=== PATIENT | female | born 1950 | race Caucasian/White ===

== ENCOUNTER → 2018-10-16 13:13 | Outpatient (CLI) | payer MEDICARE, OTHER, SELFPAY ==
--- NOTE | 2018-10-16 | DI.US.S_ITS ---
PROCEDURE: US CHEST COMPARISON: None. INDICATIONS: RIGHT CLAVICLE MASS FINDINGS: In the area of palpable abnormality, there is a 9 x 4 x 6 mm heterogeneous mass of undetermined etiology. Possible punctate calcifications. This appears asymmetric to the normal contralateral left side. IMPRESSION: Subcentimeter ill-defined heterogeneous mass in the region of palpable abnormality at the right medial clavicle of indeterminate etiology or clinical significance. Technically, lymphadenopathy or neoplasm cannot be excluded. Please correlate clinically and consider further assessment with contrast-enhanced chest CT Dictated by: Stone Fitzpatrick M.D. on 10/16/2018 at 17:08 Approved by: Stone Fitzpatrick M.D. on 10/16/2018 at 17:10
== END ==
PROVIDERS: PCP Family Medicine; Visit Provider Family Medicine
DX: R22.2 Localized swelling, mass and lump, trunk (principal)
CPT/HCPCS: 76604

== ENCOUNTER → 2018-10-21 13:42 | Outpatient (CLI) | payer MEDICARE, OTHER, SELFPAY ==
--- NOTE | 2018-10-21 | DI.CT.S_ITS ---
PROCEDURE: CT CHEST W CON INDICATIONS: RIGHT CLAVICLE MASS TECHNIQUE: After the administration of intravenous contrast, 5 mm thick sections acquired from the pulmonary apices to the posterior costophrenic angles. 7 mm thick coronal and sagittal MIP reformats were acquired. For radiation dose reduction, the following was used: automated exposure control, adjustment of mA and/or kV according to patient size. COMPARISON: [facility], , CHEST, 10/16/2018, 13:23. FINDINGS: Image quality: Excellent. Lungs and pleura: No acute air space opacities. Biapical subpleural densities are likely scars/atelectasis. No pleural effusions or pneumothorax. Central and peripheral airways are patent and normal in caliber. Mediastinum: Heart size is normal. No pericardial effusion. No mediastinal or hilar adenopathy by size criteria. Thoracic aorta and central pulmonary arteries are normal in size. Esophagus is normal in caliber. No hiatal hernia. Bones and chest wall: Deep to the palpable lump or mass felt by the patient, there is no mass seen on CT. Lateral to the marker, there is a 6 mm subcutaneous nodule. The right clavicle is normal in appearance without blastic or lytic lesion. No suspicious bony lesions. No vertebral body compression fractures. No axillary or supraclavicular adenopathy by size criteria. Thyroid gland is normal. Abdomen: There is a calcified granuloma in liver. A couple of low density nodules in liver are probably cysts or hemangiomas. A 1.1 cm round nodule adjacent to spleen is most likely a splenule. IMPRESSION: 1. No soft tissue mass is identified on CT deep to the area of interest marked by a skin marker. Lateral to the marker, there is a 6 mm subcutaneous nodule, indeterminate in clinical significance. Since this nodule is better seen on ultrasound, ultrasound followup is suggested if clinically indicated. 2. No supraclavicular or mediastinal lymphadenopathy. 3. No osseous lesions in the medial head of the right clavicle. 4. An old granuloma in liver and a couple of hepatic hypodensities most likely cysts or hemangiomas. Dictated by: Valerio Davis M.D. on 10/21/2018 at 16:17 Approved by: Valerio Davis M.D. on 10/22/2018 at 8:20
== END ==
PROVIDERS: PCP Family Medicine; Visit Provider Family Medicine
DX: M89.8X1 Other specified disorders of bone, shoulder (principal)
CPT/HCPCS: 71260; Q9967

== ENCOUNTER → 2018-11-24 11:32 | Outpatient (CLI) | payer MEDICARE, OTHER, SELFPAY ==
--- NOTE | 2018-11-24 | DI.RAD.S_ITS ---
PROCEDURE: XR WRIST LT MIN 3V INDICATIONS: LEFT WRIST PAIN AFTER FALL TECHNIQUE: 4 views of the wrist were acquired. COMPARISON: None. FINDINGS: Bones: No fractures or dislocations. No suspicious bony lesions. First CMC and triscaphe joint degeneration. First MCP joint degeneration. Soft tissues: No suspicious soft tissue calcifications. IMPRESSION: No fracture Dictated by: Stone Fitzpatrick M.D. on 11/24/2018 at 12:22 Approved by: Stone Fitzpatrick M.D. on 11/24/2018 at 12:24
== END ==
PROVIDERS: PCP Family Medicine; Visit Provider Family Medicine
DX: M25.532 Pain in left wrist (principal)
CPT/HCPCS: 73110

== ENCOUNTER → 2018-11-29 12:40 | Outpatient (CLI) | payer MEDICARE, OTHER, SELFPAY ==
--- NOTE | 2018-11-29 | DI.MG.S_ITS ---
BILATERAL DIGITAL SCREENING MAMMOGRAM 3D/2D WITH CAD: 11/29/2018 CLINICAL: Routine screening. Family history of breast cancer. Comparison is made to exams dated: 11/20/2017 mammogram, 04/27/2014 mammogram, and 07/28/2010 mammogram - [facility]. There are scattered fibroglandular elements in both breasts. Current study was also evaluated with a Computer Aided Detection (CAD) system. No significant masses, calcifications, or other findings are seen in either breast. There has been no significant interval change. IMPRESSION: NEGATIVE There is no mammographic evidence of malignancy. A 1 year screening mammogram is recommended. This exam was interpreted at Station ID: [id number]. NOTE: For mammograms, a report in lay terms will be sent to the patient. Approximately 15% of breast malignancies will not be visualized mammographically. In the management of a palpable breast mass, a negative mammogram must not discourage biopsy of a clinically suspicious lesion. Electronically Signed By: Fortino hogan/abhinav:12/01/2018 12:24:21 letter sent: Normal Exam ACR BI-RADS Category 1: Negative 3341F
== END ==
PROVIDERS: PCP Family Medicine; Visit Provider Family Medicine
DX: Z12.31 Encounter for screening mammogram for malignant neoplasm of breast (principal); Z80.3 Family history of malignant neoplasm of breast
CPT/HCPCS: 77063; 77067

== ENCOUNTER 2019-02-15 14:00 | Emergency (ER) | payer MEDICARE, OTHER, SELFPAY ==
[2019-02-15 14:02] VITALS: BP 114/72; PULSE 55; RESP 18; TEMP 36.5; O2SAT 99
--- NOTE | 2019-02-15 14:05 | DI.RAD.S_ITS ---
PROCEDURE: XR WRIST LT MIN 3V INDICATIONS: wrist pain/swelling after fall on to outstretched hand TECHNIQUE: 4 views of the wrist were acquired. COMPARISON: [facility], CR, XR WRIST LT MIN 3V, 11/24/2018, 11:58. FINDINGS: Bones: There is a transverse fracture identified involving the distal radial metaphysis with slight dorsal buckling/impaction. No additional fractures are appreciated. There are mild degenerative changes of the basal joint of the thumb. No suspicious osseous lesions are present. Soft tissues: No suspicious soft tissue calcifications. Soft tissue swelling of the wrist are noted. IMPRESSION: Mildly impacted fracture involving the distal left radial metaphysis. Dictated by: Greg Cook M.D. on 02/15/2019 at 13:17 Approved by: Greg Cook M.D. on 02/15/2019 at 13:19
--- NOTE | 2019-02-15 14:58 | ED_ITS ---
HPI - Extremity Injury (Upper) <Alejandra Griffin, ELDER COUNSELOR-BC - Last Filed: 02/15/19 16:01> General Chief Complaint: Extremity Injury, Upper Stated Complaint: States broken left wrist Time Seen by Provider: 02/15/19 14:19 Source: patient and family Mode of arrival: ambulatory Limitations: no limitations History of Present Illness HPI narrative: The patient is a 68year-old female with history of recent sinus surgery who presents with a chief complaint of an isolated left wrist injury. She states she was walking her dogs when one of them pulled her and she tripped, having a FOOSH injury to her left wrist. She denies hitting her head, hitting her neck hitting anything else. She denies loss of consciousness or any other pain other than her left wrist. She states she has a history of an injury to that wrist, and had an x-ray done last spring but does not know the results. She does complain of abrasions on her bilateral forearms. She states her tetanus is up-to-date within the past 5 years. She states she is right-hand dominant. Related Data Home Medications Medication Instructions Recorded Confirmed alpha lipoic acid PO DAILY 11/17/18 11/17/18 cholecalciferol (vitamin D3) 4,000 4,000 unit PO DAILY 11/17/18 11/17/18 unit capsule coenzyme Q10 75 mg capsule 75 mg PO DAILY 11/17/18 11/17/18 folic acid PO DAILY 11/17/18 11/17/18 lactobacillus combination no.8 PO 11/17/18 11/17/18 magnesium citrate 125 mg capsule 125 mg PO DAILY cap 11/17/18 11/17/18 vitamin B complex tablet 1 tab PO DAILY 11/17/18 11/17/18 Previous Rx's Medication Instructions Recorded hydrocodone-acetaminophen [[place]] 1 - 2 tab PO Q6HP PRN #12 tab 04/11/17 Allergies Allergy/AdvReac Type Severity Reaction Status Date / Time ketorolac [KETOROLAC] Allergy Severe injection Unverified 01/08/18 11:54 caused 7lb weight gain within minutes. cephalexin [CEPHALEXIN] Allergy Unknown Unverified 01/08/18 11:54 meperidine [MEPERIDINE] Allergy Unknown Unverified 01/08/18 11:54 Penicillins [PENICILLINS] Allergy Unknown Unverified 01/08/18 11:54 propoxyphene [PROPOXYPHENE] Allergy Unknown Unverified 01/08/18 11:54 prochlorperazine AdvReac Unknown Unverified 01/08/18 11:54 [PROCHLORPERAZINE] NSAIDS (Non-Steroidal AdvReac Verified 11/17/18 14:08 Anti-Inflamma Review of Systems <JANET Patiño - Last Filed: 02/15/19 16:01> Review of Systems GENERAL: Denies chills, fatigue, malaise, fever, sweats. HEENT: Denies sinus pain, ear pain, sore throat, difficulty swallowing, dizziness. RESPIRATORY: Denies dyspnea, cough, wheezing, hemoptysis, sputum. CARDIOVASCULAR: Denies chest pain, palpitations, orthopnea, edema, GASTROINTESTINAL: Denies nausea, vomiting, abdominal pain, diarrhea, constipatio n, melena. : Denies dysuria, frequency, incontinence, hematuria, urinary retention. MUSCULOSKELETAL: See HPI SKIN: See HPI NEUROLOGIC: Denies weakness, headache, numbness, change in speech, confusion, seizures, incoordination. PSYCHIATRIC: No concerning psychosocial issues. 12 point review of systems is negative except for those stated above PFSH <JANET Patiño - Last Filed: 02/15/19 16:01> Social History (Updated 11/17/18 @ 14:00 by Donna Chapman LPN) household members: none Smoking Status: Never smoker alcohol intake: never substance use type: does not use Social History (Updated 11/17/18 @ 14:00 by Donna Chapman LPN) household members: none Smoking Status: Never smoker alcohol intake: never substance use type: does not use Exam <JANET Patiño - Last Filed: 02/15/19 16:01> Narrative Exam Narrative: GENERAL: This is a well-nourished, well-developed patient, in no acute distress lungs sitting in wheelchair HEAD: Atraumatic. Normocephalic. No temporal or scalp tenderness. EYES: Pupils equal round and reactive. Extraocular motions intact. No scleral icterus. No injection or drainage. NECK: Trachea midline. No JVD or lymphadenopathy. Supple, nontender, no meningeal signs. CARDIOVASCULAR: Regular rate and rhythm RESPIRATORY: No cough. No increased respiratory effort. GASTROINTESTINAL: Abdomen soft, non-tender, nondistended. No hepato- splenomegaly, or palpable masses. No guarding. EXTREMITIES: pain to palpation left elbow. Positive radial pulse left hand. Capillary refill less than 2 seconds all fingers left hand. Able to flex all fingers left hand. BACK: No pain to C-spine or spinal palpation NEURO: AOx3. SKIN: 0.25 cm abrasion noted palmar aspect of right hand. Abrasion noted left elbow. Initial Vital Signs Initial Vital Signs: Vital Signs Temperature 97.7 F 02/15/19 14:02 Pulse Rate 55 L 02/15/19 14:02 Respiratory Rate 18 02/15/19 14:02 Blood Pressure 114/72 02/15/19 14:02 Pulse Oximetry 99 02/15/19 14:02 <Margo Anderson DO - Last Filed: 02/19/19 11:32> Initial Vital Signs Initial Vital Signs: Vital Signs Temperature 97.7 F 02/15/19 14:02 Pulse Rate 55 L 02/15/19 14:02 Respiratory Rate 18 02/15/19 14:02 Blood Pressure 114/72 02/15/19 14:02 Pulse Oximetry 99 02/15/19 14:02 Procedures <JANET Patiño - Last Filed: 02/15/19 16:01> Orthopedic Splinting/Casting Injury #1: Side: left Upper Extremity Injury Location: wrist Upper Extremity Immobilizer: sling/shoulder immobilizer and sugar tong splint Post splinting neuro exam: intact Post splinting vascular exam: intact Placed by: Nursing Course <JANET Patiño - Last Filed: 02/15/19 16:01> Orders Ordered: ED Orders 02/15/19 14:05 XR wrist LT min 3V Stat Vital Signs - 8 hr 02/15/19 14:02 02/15/19 15:30 Temperature 97.7 F Pulse Rate 55 L 63 Respiratory Rate 18 19 Blood Pressure 114/72 154/72 H Pulse Oximetry 99 100 <Margo Anderson DO - Last Filed: 02/19/19 11:32> Orders Ordered: ED Orders 02/15/19 14:05 XR wrist LT min 3V Stat Vital Signs - 8 hr 02/15/19 14:02 02/15/19 15:30 Temperature 97.7 F Pulse Rate 55 L 63 Respiratory Rate 18 19 Blood Pressure 114/72 154/72 H Pulse Oximetry 99 100 MDM - Extremity Injury (Upper) <JANET Patiño - Last Filed: 02/15/19 16:01> Imaging Data Wrist x-ray: Radiologist's impression: [address] [address] XRay Report Signed Patient: Ashkan Armando#: [id number] : [id number]:[id number] Age/Sex: 68 / FDate of Service: 02/15/19 Loc: ED Accession Number: [id number] Procedure: XR wrist LT min 3V Ordering Provider: Alejandra Griffin PROCEDURE: XR WRIST LT MIN 3V INDICATIONS: wrist pain/swelling after fall on to outstretched hand TECHNIQUE: 4 views of the wrist were acquired. COMPARISON: [facility], CR, XR WRIST LT MIN 3V, 11/24/2018, 11:58. FINDINGS: Bones: There is a transverse fracture identified involving the distal radial metaphysis with slight dorsal buckling/impaction. No additional fractures are appreciated. There are mild degenerative changes of the basal joint of the thumb. No suspicious osseous lesions are present. Soft tissues: No suspicious soft tissue calcifications. Soft tissue swelling of the wrist are noted. IMPRESSION: Mildly impacted fracture involving the distal left radial metaphysis. Dictated by: Greg Cook M.D. on 02/15/2019 at 13:17 Approved by: Greg Cook M.D. on 02/15/2019 at 13:19 [facility] Narrative Medical decision making narrative: The patient is a 68-year-old female presents with an isolated left wrist injury. She has a distal radius fracture on x-ray. She was placed in a sugar-tong splint which she tolerated well. I discussed at length rest ice compression elevation as well as [id number] pain medications as needed and able. The patient declined pain medication throughout her stay in the emergency department, and states that she has plenty of [place] at home if she needs it. Discussed at length return precautions to the emergency department including decreased circulation of fingers. Discussed follow-up with primary care provider as well as Orthopedics. No questions or concerns upon discharge. Discharge Plan Departure Patient Disposition: Home Clinical Impression: Abdominal pain Fracture of wrist Qualifiers: Encounter type: initial encounter Fracture type: closed Laterality: left Qualified Code(s): S62.102A - Fracture of unspecified carpal bone, left wrist, initial encounter for closed fracture Discharge Date/Time: 02/15/19 15:32 Interventions: ED Discharge Assessment Last Done: 02/15/19 15:30 Instructions: How to Use a Sling, How To Perform RICE (Rest, Ice, Compress, Elevate), How to Take Care of Your Splint, DI for Distal Radius Fracture Activity Restrictions/Additional Instructions: Thank you for trusting us with your care today. Please follow up with your primary care physician as well as [facility]. I have included their contact information. Please continue [id number] medications as needed and able for pain. P lease also use rest ice compression elevation. Please come back to the emergency department for any acute concerns such as decreased circulation to your fingers. Come back to the emergency department for any acute concerns, but please follow up with primary care provider as well. Prescriptions: No Action hydrocodone-acetaminophen [[place]] 5 MG/325 MG tablet 1 - 2 tab PO Q6HP PRNQty: 12 RF: 0 cholecalciferol (vitamin D3) 4,000 unit capsule 4,000 unit PO DAILY RF: 0 vitamin B complex [B Complex-Vitamin B12] tablet 1 tab PO DAILY RF: 0 folic acid PO DAILY RF: 0 magnesium citrate 125 mg capsule 125 mg PO DAILY RF: 0 alpha lipoic acid PO DAILY RF: 0 Ultra CoQ10 75 mg capsule 75 mg PO DAILY RF: 0 lactobacillus combination no.8 PO RF: 0 Referrals: [facility] [Provider Group] Corby Sanchez MD [Primary Care Provider] - <Margo Anderson DO - Last Filed: 02/19/19 11:32> Cosign ED Attending Janes Attestation: I was immediately available in the department for consultation. Documentation has been reviewed. I agree with assessment and plan.
[2019-02-15 15:30] VITALS: BP 154/72; PULSE 63; RESP 19; O2SAT 100
== END 2019-02-15 15:32 | disposition home or self-care (01) ==
PROVIDERS: Emergency Provider Nurse Practitioner Family; PCP Family Medicine
DX: S62.102A Fracture of unspecified carpal bone, left wrist, initial encounter for closed fracture (principal); W19.XXXA Unspecified fall, initial encounter
CPT/HCPCS: 29125; 73110; 99282; 99283

== ENCOUNTER → 2019-05-12 13:33 | Outpatient (CLI) | payer MEDICARE, OTHER, SELFPAY ==
--- NOTE | 2019-05-12 | DI.US.S_ITS ---
PROCEDURE: US CHEST COMPARISON: [facility], CT, CT CHEST W CON, 10/21/2018, 13:52. [facility], US, US CHEST, 10/16/2018, 13:23. INDICATIONS: CLAVICAL MASS FINDINGS: No significant change in heterogeneous mass involving the right clavicular head measuring 0.7 x 0.5 x 0.5 cm. Minimal internal vasculature noted. IMPRESSION: No significant change in heterogeneous, mildly vascular mass involving the right clavicular head. If indicated, sonographically directed fine needle aspiration could be performed for pathologic diagnosis. Dictated by: Vincent REGALADO Interpreted: Roxanne Gregory MD on 05/12/2019 at 14:53 Approved by: Roxanne Gregory M.D. on 05/12/2019 at 16:39
== END ==
PROVIDERS: PCP Family Medicine; Visit Provider Family Medicine
DX: R22.2 Localized swelling, mass and lump, trunk (principal); M85.851 Other specified disorders of bone density and structure, right thigh; M85.852 Other specified disorders of bone density and structure, left thigh; M85.88 Other specified disorders of bone density and structure, other site; Z78.0 Asymptomatic menopausal state
CPT/HCPCS: 76604; 77080

== ENCOUNTER → 2019-12-08 15:38 | Outpatient (CLI) | payer MEDICARE, OTHER, SELFPAY ==
--- NOTE | 2019-12-08 | DI.MG.S_ITS ---
BILATERAL DIGITAL SCREENING MAMMOGRAM 3D/2D WITH CAD: 12/08/2019 CLINICAL: Routine screening. Family history of breast cancer. Comparison is made to exams dated: 11/29/2018 mammogram, 11/20/2017 mammogram, and 04/27/2014 mammogram - [facility]. There are scattered fibroglandular elements in both breasts. Current study was also evaluated with a Computer Aided Detection (CAD) system. No significant masses, calcifications, or other findings are seen in either breast. There has been no significant interval change. IMPRESSION: NEGATIVE There is no mammographic evidence of malignancy. A 1 year screening mammogram is recommended. This exam was interpreted at Station ID: [id number]. NOTE: For mammograms, a report in lay terms will be sent to the patient. Approximately 15% of breast malignancies will not be visualized mammographically. In the management of a palpable breast mass, a negative mammogram must not discourage biopsy of a clinically suspicious lesion. Electronically Signed By: Lexy maurer/abhinav:12/08/2019 17:00:31 letter sent: Normal Exam ACR BI-RADS Category 1: Negative 3341F
== END ==
PROVIDERS: PCP Family Medicine; Referring Provider Family Medicine; Visit Provider Family Medicine
DX: Z12.31 Encounter for screening mammogram for malignant neoplasm of breast (principal); Z80.3 Family history of malignant neoplasm of breast
CPT/HCPCS: 77063; 77067

== ENCOUNTER → 2021-01-16 10:09 | Outpatient (CLI) | payer MEDICARE, OTHER, SELFPAY ==
--- NOTE | 2021-01-16 10:11 | DI.MG.S_ITS ---
BILATERAL DIGITAL SCREENING MAMMOGRAM 3D/2D WITH CAD: 01/16/2021 CLINICAL: Routine screening. Family history of breast cancer. Comparison is made to exams dated: 12/08/2019 mammogram, 11/29/2018 mammogram, and 11/20/2017 mammogram - [facility]. There are scattered fibroglandular elements in both breasts. Current study was also evaluated with a Computer Aided Detection (CAD) system. No significant masses, calcifications, or other findings are seen in either breast. There has been no significant interval change. IMPRESSION: NEGATIVE There is no mammographic evidence of malignancy. A 1 year screening mammogram is recommended. This exam was interpreted at Station ID: [id number]. NOTE: For mammograms, a report in lay terms will be sent to the patient. Approximately 15% of breast malignancies will not be visualized mammographically. In the management of a palpable breast mass, a negative mammogram must not discourage biopsy of a clinically suspicious lesion. Electronically Signed By: Osvaldo figueroa/abhinav:01/16/2021 10:48:34 letter sent: Normal Exam ACR BI-RADS Category 1: Negative 3341F
== END ==
PROVIDERS: PCP Family Medicine; Referring Provider Family Medicine; Visit Provider Family Medicine
DX: Z12.31 Encounter for screening mammogram for malignant neoplasm of breast (principal); Z80.3 Family history of malignant neoplasm of breast
CPT/HCPCS: 77063; 77067

== ENCOUNTER → 2021-05-08 13:14 | Outpatient (CLI) | payer MEDICARE, OTHER, SELFPAY ==
[2021-05-08 16:59] LABS: COVID19 -Nasal RAPID Negative (Negative)
== END ==
PROVIDERS: PCP Family Medicine; Visit Provider Nurse Practitioner
DX: Z01.812 Encounter for preprocedural laboratory examination (principal); Z20.822 Contact with and (suspected) exposure to COVID-19
CPT/HCPCS: 87635; C9803

== ENCOUNTER 2021-05-09 07:00 | Day surgery (SDC) | payer MEDICARE, OTHER, SELFPAY ==
--- NOTE | 2021-05-09 | PATH_ITS ---
[facility] Accession Number: [id number] . 01 Material submitted: . cecum - CECAL POLYP X2 . 02 Diagnosis: Cecum, Polyp x2, Biopsy: Tubular adenomas. MRV 05/11/2021 1003 Local . 02 Electronically signed: . Janina Ewing MD, Pathologist NPI- [id number] . 01 Gross description: . CECAL POLYP X2: Received in formalin are 2 fragment(s) of de león, soft tissue measuring 0.7 x 0.2 x 0.1 cm to 0.3 x 0.2 x 0.1 cm submitted entirely in 1 cassette(s) /JAIMIE 05/10/2021 0440 Local . 02 Pathologist provided ICD-10: D12.0 . 02 CPT . 359252 Performed at: 01 [facility] Cytology [address] [facility] [address], [place] [id number] MD Fortino Hernandez MD Phone: [phone] Performed at: 02 [facility] [address] [place], [place] [id number] MD Janina Eiwng MD Phone: [phone]
[2021-05-09] MEDS: SODIUM CHLORIDE 0.9% 1,000 ML 84 ML IV (07:16)
[2021-05-09 07:23] VITALS: BP 151/86; PULSE 86; RESP 16; TEMP 36.4; O2SAT 97; BMI 23.1
--- NOTE | 2021-05-09 07:56 | PM.HP.1 ---
History of Present Illness History of Present Illness Date Patient Seen: 05/09/21 Time Patient Seen: 07:56 Chief complaint: COLONOSCOPY Narrative: personal hx of colon polyp and fam hx colon cancer Patient History Family & Social History Social History: household members none Tobacco & Substance use: Smoking Status Never smoker alcohol intake never Substance Use Type does not use Meds Home Medications and Allergies Home Medications Medication Instructions Recorded Confirmed Type cholecalciferol (vitamin D3) 100 4,000 unit PO DAILY 11/17/18 05/09/21 History mcg (4,000 unit) capsule coenzyme Q10 75 mg capsule (Ultra 75 mg PO DAILY 11/17/18 05/09/21 History CoQ10) lactobacillus combination no.8 See Rx Instructions .ROUTE .COMPLEX 11/17/18 05/09/21 History [Adult Probiotic] magnesium citrate 125 mg capsule 125 mg PO DAILY cap 11/17/18 05/09/21 History oxyquinoline 0.025 %-sodium lauryl 1 each VAG .COMPLEX #113.4 gram 02/29/20 05/09/21 Rx sulfate 0.01 % vaginal gel levothyroxine 50 mcg tablet 50 mcg PO DAILY 05/09/21 05/09/21 History liothyronine 5 mcg tablet 5 mcg PO DAILY 05/09/21 05/09/21 History Allergies Allergy/AdvReac Type Severity Reaction Status Date / Time ketorolac [KETOROLAC] Allergy Severe injection Verified 05/09/21 07:31 caused 7lb weight gain within minutes. cephalexin [CEPHALEXIN] Allergy Unknown Verified 05/09/21 07:31 meperidine [MEPERIDINE] Allergy Unknown Verified 05/09/21 07:31 Penicillins [PENICILLINS] Allergy Unknown Verified 05/09/21 07:31 propoxyphene [PROPOXYPHENE] Allergy Unknown Verified 05/09/21 07:31 prochlorperazine AdvReac Unknown Verified 05/09/21 07:31 [PROCHLORPERAZINE] NSAIDS (Non-Steroidal AdvReac Verified 05/09/21 07:31 Anti-Inflamma Review of Systems Review of Systems ROS: Yes All systems reviewed with the patient and are negative except as otherwise documented Gastrointestinal Gastrointestinal: Reports constipation Exam Vital Signs (past 8 hours): - 05/09/21 07:23 Temperature 97.5 F L Pulse Rate 86 Respiratory Rate 16 Blood Pressure 151/86 H Pulse Oximetry 97 Oxygen Delivery Method Room Air Const General: cooperative and comfortable Orientation: alert HENMT Head: normocephalic Ears: external ears normal Nose: external nose normal Face and sinus: normal facial exam Mouth: oral mucosae normal Eyes General: appearance normal, both eyes and all related structures Neck Neck: normal visual inspection Chest Chest: normal inspection of the chest Resp Effort & Inspection: normal respiratory effort Auscultation: clear to auscultation bilaterally Cardio Rate: regular rate Rhythm: regular rhythm Heart Sounds: no murmurs GI Inspection: normal to inspection Palpation: soft and No tender Auscultation: normal bowel sounds Skin General: no rashes or lesions noted and No jaundice Neuro General: patient alert and moves all extremities Cognition: normal cognition Speech: speech normal Extrem General: no pedal edema Psych Appearance: grossly normal Assessment & Plan Assessment & Plan narrative: Personal history of colon polyps and a family history of colon cancer. Colonoscopy is planned for today.
--- NOTE | 2021-05-09 07:58 | PM.PREOP ---
Pre-operative Note COVID-19 COVID-19 status: Negative Result date/Date tested (Pos, Neg/Pending): 05/08/21 Interval Note History & Physical reviewed/Exam performed by Physician: Yes Changes to H&P: No ASA Class (for procedural sedation): II
[2021-05-09] MEDS: MIDAZOLAM 5 MG/5 ML VIAL IV (08:12)
[2021-05-09] MEDS: fentaNYL 250 MCG/5 ML INJ IV (08:12)
--- NOTE | 2021-05-09 08:38 | PM.OP.ENDO ---
Operative Date/Time/Diagnoses Date of procedure: 05/09/21 Time of procedure: 08:38 Pre-op diagnosis: Colon polyps and a family history of colon cancer Post-op diagnosis: same Procedure & Clinicians Study performed: Colonoscopy with cold forceps polypectomy and cold snare polypectomy Same procedure as scheduled: Yes Indications: Personal history of colon polyps and a family history of colon cancer Surgeon: Clyde Khanna Procedure Notes SCOAP/Timeout: Done Procedure in detail: After the risks and benefits were explained, written and verbal informed consent was obtained. The patient was brought into the procedure room and placed into the left lateral decubitus position. Conscious sedation medication was applied as per nursing documentation. Digital rectal examination was accomplished. The scope was introduced into the patient and advanced under direct visualization to the cecum as identified by the appendiceal orifice and ileocecal valve. The scope was slowly withdrawn to carefully examine the mucosa for any defects or lesions. Comprehensive imaging was accomplished throughout the rectum including the dentate line. The colon was decompressed, the scope was then removed from the patient who tolerated the procedure well. 4 mg Versed 100 mcg fentanyl Bowel prep adequate Pediatric colonoscope Scope withdrawal time: 12 minutes Sedation minutes: 34 Complications: none Impression: There was some very scant diverticulosis in the left colon. The patient had a tortuous navigation. It was challenging to achieve cecal intubation. There were 2 polyps in the cecum 1 was quite diminutive and cold forceps were used. The other was perhaps 5 mm and cold snare was employed. Endoscopic diagnosis 1. Diverticulosis 2. Colon polyps Post-procedure Recommendations: Colonscopy in 5 years Plan for aftercare: 1. Await histopathology 2. Repeat colonoscopy 5 years Disposition: PACU
[2021-05-09 08:40] VITALS: BP 127/75; PULSE 68; RESP 16; TEMP 36.3; O2SAT 98
[2021-05-09 08:45] VITALS: BP 117/64; PULSE 65; RESP 16; O2SAT 99
[2021-05-09 08:50] VITALS: BP 118/64; PULSE 72; RESP 14; O2SAT 98
[2021-05-09 09:01] VITALS: BP 122/60; PULSE 61; RESP 16; TEMP 36.4; O2SAT 98
[2021-05-09 09:09] VITALS: BP 121/70; PULSE 79; RESP 16; O2SAT 98
== END 2021-05-09 09:12 | disposition home or self-care (01) ==
PROVIDERS: PCP Family Medicine; Referring Provider Internal Medicine Gastroenterology; Visit Provider Internal Medicine Gastroenterology
PROC: 0DJD8ZZ Inspection of Lower Intestinal Tract, Via Natural or Artificial Opening Endoscopic (ICD-10-PCS; CPT 45378; principal; 2021-05-09 08:00)
DX: Z12.11 Encounter for screening for malignant neoplasm of colon (principal); Z80.0 Family history of malignant neoplasm of digestive organs; Z86.010 Personal history of colon polyps; K57.30 Diverticulosis of large intestine without perforation or abscess without bleeding; D12.0 Benign neoplasm of cecum
CPT/HCPCS: 45385; 45380; J2250; J3010

== ENCOUNTER → 2022-01-17 15:13 | Outpatient (CLI) | payer MEDICARE, OTHER, SELFPAY ==
--- NOTE | 2022-01-17 15:15 | DI.MG.S_ITS ---
BILATERAL DIGITAL SCREENING MAMMOGRAM 3D/2D WITH CAD: 01/17/2022 CLINICAL: Routine screening. Family history of breast cancer. Comparison is made to exams dated: 01/16/2021 mammogram, 12/08/2019 mammogram, and 11/29/2018 mammogram - [facility]. There are scattered fibroglandular elements in both breasts. Current study was also evaluated with a Computer Aided Detection (CAD) system. No significant masses, calcifications, or other findings are seen in either breast. There has been no significant interval change. IMPRESSION: NEGATIVE There is no mammographic evidence of malignancy. A 1 year screening mammogram is recommended. This exam was interpreted at Station ID: [id number]. NOTE: For mammograms, a report in lay terms will be sent to the patient. Approximately 15% of breast malignancies will not be visualized mammographically. In the management of a palpable breast mass, a negative mammogram must not discourage biopsy of a clinically suspicious lesion. Electronically Signed By: Gama Lerma M.D., jr/abhinav:01/18/2022 08:39:49 letter sent: Normal Exam ACR BI-RADS Category 1: Negative 3341F
== END ==
PROVIDERS: PCP Family Medicine; Referring Provider Family Medicine; Visit Provider Family Medicine
DX: Z12.31 Encounter for screening mammogram for malignant neoplasm of breast (principal); Z80.3 Family history of malignant neoplasm of breast
CPT/HCPCS: 77063; 77067

== ENCOUNTER → 2023-01-25 10:51 | Outpatient (CLI) | payer MEDICARE, OTHER, SELFPAY ==
--- NOTE | 2023-01-25 | DI.MG.S_ITS ---
BILATERAL DIGITAL SCREENING MAMMOGRAM 3D/2D WITH CAD: 01/25/2023 CLINICAL: Routine screening. Family history of breast cancer. Comparison is made to exams dated: 01/17/2022 mammogram, 01/16/2021 mammogram, and 12/08/2019 mammogram - [facility]. There are scattered areas of fibroglandular density in both breasts (category b / 25%-50% glandular tissue). Current study was also evaluated with a Computer Aided Detection (CAD) system. There are benign vascular calcifications in both breasts. No significant masses, calcifications, or other findings are seen in either breast. There has been no significant interval change. IMPRESSION: BENIGN There is no mammographic evidence of malignancy. A 1 year screening mammogram is recommended. Based on the Tyrer Cuzick model (a risk assessment model) the patient's lifetime risk is 8.9% and her 10 year risk is 6.7%. According to the ACR, ACS, and NCCN guidelines, an annual breast MRI exam along with mammogram is recommended if the patient's lifetime risk is 20% or greater. This exam was interpreted at Station ID: [id number]. NOTE: For mammograms, a report in lay terms will be sent to the patient. Approximately 15% of breast malignancies will not be visualized mammographically. In the management of a palpable breast mass, a negative mammogram must not discourage biopsy of a clinically suspicious lesion. Electronically Signed By: Sofi navas/abhinav:01/25/2023 12:10:52 letter sent: Normal Exam ACR BI-RADS Category 2: Benign Finding(s) 3342F
== END ==
PROVIDERS: PCP Family Medicine; Referring Provider Family Medicine; Visit Provider Family Medicine
DX: Z12.31 Encounter for screening mammogram for malignant neoplasm of breast (principal); Z80.3 Family history of malignant neoplasm of breast
CPT/HCPCS: 77063; 77067

== ENCOUNTER 2023-02-16 15:54 | Emergency (ER) | payer MEDICARE, OTHER, SELFPAY ==
[2023-02-16] VITALS (9 sets, daily range): BP systolic 134–192; BP diastolic 65–91; PULSE 74–84; RESP 12–24; TEMP 36.4; O2SAT 98–100; BMI 22.3
--- NOTE | 2023-02-16 16:06 | DI.RAD.S_ITS ---
PROCEDURE: XR CHEST 1V INDICATIONS: chest pain TECHNIQUE: One view of the chest was acquired. COMPARISON: [facility], , CHEST 1 VIEW, 09/04/2013, 2:25. FINDINGS: Surgical changes and devices: None. Lungs and pleura: Lungs are clear. No pleural effusions or pneumothorax. Mediastinum: Mediastinal contours appear normal. Heart size is normal. Bones and chest wall: No suspicious bony lesions. Overlying soft tissues appear unremarkable. IMPRESSION: No acute process. Dictated by: Suellen Akbar M.D. on 02/16/2023 at 15:33 Approved by: Suellen Akbar M.D. on 02/16/2023 at 15:33
[2023-02-16 16:18] LABS: Add Manual Diff / Slide Review NO; Basophils Absolute Auto 100 /uL (0-100); Basophils Percent Auto 0.8 % (0-2); Eosinophils Absolute Auto 100 /uL (0-450); Hematocrit 41.7 % (36-46); Hemoglobin 14.1 g/dL (12.0-16.0); Lymphocytes Absolute Auto 1400 /uL (1100-4500); Lymphocytes Percent Auto 18.9 % (25-40); Mean Corpuscular HGB Conc 33.9 % (30-36); Mean Corpuscular Hemoglobin 29.9 PG (26-34); Mean Corpuscular Volume 88.3 fL (80-100); Monocytes Absolute Auto 600 /uL (0-900); Monocytes Percent Auto 7.6 % (3-14); Neutrophils Absolute Auto 5100 /uL (1500-7000); Neutrophils Percent Auto 70.7 % (50-75); Platelet Count 301 X10^3/uL (150-400); Red Blood Cell Count 4.72 X10^6/uL (4.0-5.2); Red Cell Distribution Width 13.4 % (11.6-14.8); White Blood Cell Count 7.3 X10^3/uL (4.5-11.0)
[2023-02-16 16:24] LABS: Prothrombin Time 11.1 SECONDS (10.1-12.7)
[2023-02-16 16:29] LABS: Alanine Aminotransferase 24 IU/L (<35); Albumin 4.2 g/dL (3.5-5.0); Albumin Globulin Ratio 1.4 (1.0-2.8); Alkaline Phosphatase 112 U/L (38-126); Aspartate Aminotransferase 23 IU/L (14-36); BUN Creatinine Ratio 36.7 (6-22); Bilirubin Total 0.4 mg/dL (0.2-1.3); Blood Urea Nitrogen 18 mg/dL (7-17); Carbon Dioxide 28 mmol/L (22-32); Chloride 101 mmol/L (98-107); Creatine Kinase 124 U/L (30-135); Estimated Glomerular Filt Rate > 60 mL/min (>60); Glucose 105 mg/dL (80-110); HEMOLYSIS < 15 (0-50); Lipase 66 U/L (23-300); Magnesium 2.4 mg/dL (1.6-2.3); Potassium 3.8 mmol/L (3.4-5.1); Sodium 134 mmol/L (137-145); Total Protein 7.2 g/dL (6.3-8.2)
[2023-02-16 16:34] LABS: PTT Partial Thromboplastin Tim 31 SECONDS (26-36)
[2023-02-16 16:40] LABS: Troponin I < 0.012 ng/mL (0.01-0.034)
[2023-02-16 16:44] LABS: CKMB % Relative Index 4.5 % (1.5-5.0); Creatine Kinase MB 5.62 ng/mL (<2.37)
--- NOTE | 2023-02-16 17:28 | ED.ARRPALP ---
HPI - Arrhythmia/Palpitations General Chief Complaint: Arrhythmia/Palpitations Stated Complaint: heart beat messed up Time Seen by Provider: 02/16/23 16:13 Source: patient Mode of arrival: Family Vehicle History of Present Illness HPI narrative: 72-year-old female nonsmoker with history of thyroid problems and prior history of SVT presents with family in the chief complaint of palpitations, rapid heart rate and generally feeling unwell over the course of the day, starting at about 10:00 a.m.. She is not currently taking any medications. She denies any dietary change or other lifestyle change. She is been exercising and went for a hike this morning and felt completely fine and absent of symptoms. It was noted that she had an elevated blood pressure earlier today which could certainly have been contributing however she is asymptomatic at time of evaluation. She has no chest pain or shortness of breath. She denies nausea, vomiting or diarrhea. She is had no fever or chills. Related Data Home Medications Medication Instructions Recorded Confirmed cholecalciferol (vitamin D3) 100 4,000 unit PO DAILY 11/17/18 09/13/21 mcg (4,000 unit) capsule coenzyme Q10 75 mg capsule (Ultra 75 mg PO DAILY 11/17/18 09/13/21 CoQ10) lactobacillus combination no.8 See Rx Instructions .Route .COMPLEX 11/17/18 09/13/21 [Adult Probiotic] magnesium citrate 125 mg capsule 125 mg PO DAILY 11/17/18 09/13/21 levothyroxine 50 mcg tablet 50 mcg PO DAILY 05/09/21 09/13/21 liothyronine 5 mcg tablet 5 mcg PO DAILY 05/09/21 09/13/21 Previous Rx's Medication Instructions Recorded oxyquinoline 0.025 %-sodium lauryl 1 ea vaginal .COMPLEX #113.4 grams 09/13/21 sulfate 0.01 % vaginal gel Allergies Allergy/AdvReac Type Severity Reaction Status Date / Time ketorolac [KETOROLAC] Allergy Severe injection Verified 02/16/23 16:11 caused 7lb weight gain within minutes. Latex, Natural Rubber Allergy Severe Hives Verified 02/16/23 16:11 cephalexin [CEPHALEXIN] Allergy Unknown Verified 02/16/23 16:11 meperidine [MEPERIDINE] Allergy Unknown Verified 02/16/23 16:11 Penicillins [PENICILLINS] Allergy Unknown Verified 02/16/23 16:11 propoxyphene [PROPOXYPHENE] Allergy Unknown Verified 02/16/23 16:11 prochlorperazine AdvReac Unknown Verified 02/16/23 16:11 [PROCHLORPERAZINE] NSAIDS (Non-Steroidal AdvReac Verified 02/16/23 16:11 Anti-Inflamma Review of Systems Review of Systems Narrative: GENERAL: Denies chills, fatigue, malaise, fever, sweats. HEENT: Denies sinus pain, ear pain, sore throat, difficulty swallowing, dizziness. RESPIRATORY: Denies dyspnea, cough, wheezing, hemoptysis, sputum. CARDIOVASCULAR: See HPI GASTROINTESTINAL: Denies nausea, vomiting, abdominal pain, diarrhea, constipation, melena. : Denies dysuria, frequency, incontinence, hematuria, urinary retention. MUSCULOSKELETAL: denies weakness, joint pain, or bony pain SKIN: Denies rash, skin lesions, or other NEUROLOGIC: Denies weakness, headache, numbness, change in speech, confusion, seizures, incoordination. PSYCHIATRIC: No concerning psychosocial issues. Patient History Medical History Acne Alopecia Ankle pain Cataracts, bilateral Chicken pox Foot pain Fractures Heavy menstrual period Hyperthyroidism Measles Mumps Myasthenia gravis Osteoarthritis Osteopenia Painful menstrual periods Plantar warts Surgical History Anesthesia History of breast surgery History of hernia repair History of knee replacement History of surgery History of tonsillectomy Family History Father Colon cancer Skin cancer Hyperlipidemia Hypertension Kidney disease Mother Hyperlipidemia Brother History of heart disease Hyperlipidemia History of heart attack Sister Hyperlipidemia Social History household members: none Smoking Status: Never smoker alcohol intake: never substance use type: does not use Smoking Status: Never smoker alcohol intake frequency: 0-2 drinks per day Substance Use Type: does not use Exam Narrative Exam Narrative: GENERAL: [] year old patient appears stated age. Well-developed patient, in mild distress. HEAD: Atraumatic. Normocephalic. EYES: Pupils equal round and reactive. Extraocular motions intact. No scleral icterus. No injection or drainage. ENT: Nose without bleeding, purulent drainage. Throat without erythema, tonsillar hypertrophy or exudate. Airway patent. NECK: Trachea midline. Non tender CARDIOVASCULAR: Regular rate and rhythm without murmurs, gallops, or rubs. RESPIRATORY: Clear to auscultation. Breath sounds equal bilaterally. No wheezes, rales, or rhonchi. GASTROINTESTINAL: Abdomen soft, non-tender, nondistended. EXTREMITIES: No edema or joint tenderness. BACK: Nontender without deformity or crepitance. No flank tenderness. NEURO: AOx3. SKIN: No rash or erythema of visible areas Initial Vital Signs Initial Vital Signs: Vital Signs Temperature 97.6 F 02/16/23 16:07 Pulse Rate 82 02/16/23 16:07 Respiratory Rate 18 02/16/23 16:07 Blood Pressure 192/91 H 02/16/23 16:07 Pulse Oximetry 100 02/16/23 16:07 Oxygen Delivery Method Room Air 02/16/23 16:07 Course Orders Ordered: ED Orders 02/16/23 16:06 XR chest 1V Stat COVID19 -Nasal RAPID Stat EKG-12 Lead Stat 02/16/23 16:10 Complete Blood Count AUTO DIFF Stat Comprehensive Metabolic Panel Stat Free T4, Direct Thyroxine Stat Lipase Stat Magnesium Stat PTT Partial Thromboplastin Julius Stat Prothrombin Time INR Stat TSH w/ Reflex to FT4 Stat Troponin & CK Cardiac Panel Stat Vital Signs Vital signs: Vital Signs - 8 hr 02/16/23 16:07 Temperature 97.6 F Pulse Rate 82 Respiratory Rate 18 Blood Pressure 192/91 H Pulse Oximetry 100 Oxygen Delivery Method Room Air MDM - Arrhythmia/Palpitations Lab Data 02/16/23 16:10 02/16/23 16:10 Labs: Lab Results 02/16/23 02/16/23 02/16/23 Range/Units 16:10 16:10 16:10 WBC 7.3 (4.5-11.0) X10^3/uL RBC 4.72 (4.0-5.2) X10^6/uL Hgb 14.1 (12.0-16.0) g/dL Hct 41.7 (36-46) % MCV 88.3 (80-100) fL MCH 29.9 (26-34) PG MCHC 33.9 (30-36) % RDW 13.4 (11.6-14.8) % Plt Count 301 (150-400) X10^3/uL Neut % (Auto) 70.7 (50-75) % Lymph % (Auto) 18.9 L (25-40) % [place] % (Auto) 7.6 (3-14) % Eos % (Auto) 2.0 (2-4) % Baso % (Auto) 0.8 (0-2) % Neut # (Auto) 5100 (1671-6072) /uL Lymph # (Auto) 1400 (8490-5136) /uL [place] # (Auto) 600 (0-900) /uL Eos # (Auto) 100 (0-450) /uL Baso # (Auto) 100 (0-100) /uL PT 11.1 (10.1-12.7) SECONDS INR 1.0 (0.9-1.3) APTT 31 (26-36) SECONDS Sodium 134 L (137-145) mmol/L Potassium 3.8 (3.4-5.1) mmol/L Chloride 101 (98-107) mmol/L Carbon Dioxide 28 (22-32) mmol/L BUN 18 H (7-17) mg/dL Creatinine 0.49 L (0.52-1.04) mg/dL Estimated GFR > 60 (>60) mL/min BUN/Creatinine Ratio 36.7 H (6-22) Glucose 105 (80-110) mg/dL Calcium 9.0 (8.4-10.2) mg/dL Magnesium 2.4 H (1.6-2.3) mg/dL Total Bilirubin 0.4 (0.2-1.3) mg/dL AST 23 (14-36) IU/L ALT 24 (<35) IU/L Alkaline Phosphatase 112 (38-126) U/L Total Creatine Kinase 124 (30-135) U/L CK-MB (CK-2) 5.62 H (<2.37) ng/mL CK-MB (CK-2) Rel Index 4.5 (1.5-5.0) % Troponin I < 0.012 (0.01-0.034) ng/mL Total Protein 7.2 (6.3-8.2) g/dL Albumin 4.2 (3.5-5.0) g/dL Globulin 3.0 (1.7-4.1) g/dL Albumin/Globulin Ratio 1.4 (1.0-2.8) Lipase 66 (23-300) U/L TSH (0.47-4.68) uIU/mL Free T4 (0.78-2.19) ng/dL 02/16/23 Range/Units 16:10 WBC (4.5-11.0) X10^3/uL RBC (4.0-5.2) X10^6/uL Hgb (12.0-16.0) g/dL Hct (36-46) % MCV (80-100) fL MCH (26-34) PG MCHC (30-36) % RDW (11.6-14.8) % Plt Count (150-400) X10^3/uL Neut % (Auto) (50-75) % Lymph % (Auto) (25-40) % [place] % (Auto) (3-14) % Eos % (Auto) (2-4) % Baso % (Auto) (0-2) % Neut # (Auto) (0446-2531) /uL Lymph # (Auto) (2131-2970) /uL [place] # (Auto) (0-900) /uL Eos # (Auto) (0-450) /uL Baso # (Auto) (0-100) /uL PT (10.1-12.7) SECONDS INR (0.9-1.3) APTT (26-36) SECONDS Sodium (137-145) mmol/L Potassium (3.4-5.1) mmol/L Chloride (98-107) mmol/L Carbon Dioxide (22-32) mmol/L BUN (7-17) mg/dL Creatinine (0.52-1.04) mg/dL Estimated GFR (>60) mL/min BUN/Creatinine Ratio (6-22) Glucose (80-110) mg/dL Calcium (8.4-10.2) mg/dL Magnesium (1.6-2.3) mg/dL Total Bilirubin (0.2-1.3) mg/dL AST (14-36) IU/L ALT (<35) IU/L Alkaline Phosphatase (38-126) U/L Total Creatine Kinase (30-135) U/L CK-MB (CK-2) (<2.37) ng/mL CK-MB (CK-2) Rel Index (1.5-5.0) % Troponin I (0.01-0.034) ng/mL Total Protein (6.3-8.2) g/dL Albumin (3.5-5.0) g/dL Globulin (1.7-4.1) g/dL Albumin/Globulin Ratio (1.0-2.8) Lipase (23-300) U/L TSH < 0.02 L (0.47-4.68) uIU/mL Free T4 1.51 (0.78-2.19) ng/dL MDM Narrative Medical decision making narrative: [72] year old patient presents with palpitations earlier today, resolved here Multiple etiologies for patient's symptoms considered including, but not limited to: [SVT versus electrolyte abnormality versus atrial fibrillation versus other] Prior Charts reviewed in our EMR Primary Historian: patient Labs reviewed and interpreted by myself: No leukocytosis or left shift, no signs of anemia, primary electrolytes and renal function within normal. Troponin negative. TSH low, Free T4 Imaging reviewed: CXR shows no acute process Patient's symptoms improved over duration of stay with above-stated therapies. Patient observed for multiple hours and is in a normal sinus rhythm for the duration, no tachyarrhythmias noted, vital signs have been normalized, patient asymptomatic for duration. Findings and discharge diagnosis discussed with patient/family followed by verbalization of understanding Return precautions discussed with patient/family whom verbalize understanding of diagnosis and plan Discharge Plan Departure Patient Disposition: Home Clinical Impression: Heart palpitations Instructions: DI for Palpitations Activity Restrictions/Additional Instructions: *You have been diagnosed with [palpitations and episode of high blood pressure. As we discussed your history and physical exam as well as labs, EKG and imaging are very reassuring and there is no indication at this time for a specific or immediate intervention.] *What to do: *Please continue to take your regular medications as directed. [ ] New medication prescriptions sent to your pharmacy: [ ] [ ] New medication written as a paper prescription [ ] No new medications given *Please follow up with your primary care provider in 2-3 days, call for an appointment. Let them know you were seen in the Emergency Department and that we ask that you be seen in follow up. We will electronically transmit a record of today's note if your PCP is in our system *Return to Emergency Department if you should have any new, worsening or concerning symptoms, such as [fever greater than 101 F, shaking chills, worsening pain, persistent vomiting or other bothersome symptoms] Prescriptions: No Action oxyquinoline-sod.lauryl sulfat 0.025-0.01 % gel 1 ea VAG .COMPLEX Qty: 113.4 3RF Rx Instructions: To use daily with pessary changes cholecalciferol (vitamin D3) 4,000 unit capsule 4,000 unit PO DAILY magnesium citrate 125 mg capsule 125 mg PO DAILY Ultra CoQ10 75 mg capsule 75 mg PO DAILY lactobacillus combination no.8 See Rx Instructions .ROUTE .COMPLEX Rx Instructions: takes daily does not know dose liothyronine 5 mcg tablet 5 mcg PO DAILY Patient Comments: TAKE 1 TABLET ON EMPTY STOMACH IN THE MORNING FOR 2 WEEKS THEN 2 TABLETS IN THE MORNING ON EMPTY STOMACH levothyroxine 50 mcg tablet 50 mcg PO DAILY Patient Comments: Take 1 tablet by mouth daily in the morning on an empty stomach Referrals: Corby Sanchez MD [Primary Care Provider] - Stand Alone Forms: Patient Portal/API
[2023-02-16 18:29] LABS: TSH w/ Reflex to FT4 < 0.02 uIU/mL (0.47-4.68)
[2023-02-16 19:06] LABS: Free T4, Direct Thyroxine 1.51 ng/dL (0.78-2.19)
== END 2023-02-16 19:24 | disposition home or self-care (01) ==
PROVIDERS: Emergency Provider Emergency Medicine; PCP Family Medicine
DX: R00.2 Palpitations (principal); R07.9 Chest pain, unspecified
CPT/HCPCS: 36415; 71045; 80053; 82550; 82553; 83690; 83735; 84439; 84443; 84484; 85025; 85610; 85730; 93005; 99283; 99284

== ENCOUNTER → 2023-03-21 13:38 | Outpatient (CLI) | payer MEDICARE, OTHER, SELFPAY ==
--- NOTE | 2023-03-21 | DI.ECHO.S_ITS ---
[facility] +---------+ [facility] +---------+ : : [address] : [place] : : : : [id number] : : : : Phone: [phone]+ Echocardiogram Report + + :Name: LIUDMILA SANCHEZ Study Date: 03/21/2023 Height: 64 in : :[facility] ReadingLocation: Weight: 130 lb : : Gender: Female BSA: 1.6 m2 : :: 1950 Age: 72 yrs BP: 152/87 mmHg: :Reason For Study: Nonrheumatic Mitral Valve Prolapse : :Ordering Physician: Daniel, : :Cara Performed By: Nimisha López : :Referring: CARA RAMÍREZ : + + Interpretation Summary The ejection fraction is estimated to be 55-60%. Diastolic parameters suggest probable normal left ventricular diastolic function and normal filling pressures. The right ventricular systolic function is normal. Pulmonary artery pressures cannot be estimated because of the lack of a measurable TR jet velocity but the IVC suggests a CVP of around 8 mmHg. There is no evidence of mitral valve prolapse. There is no mitral regurgitation noted. Procedure: A two-dimensional transthoracic echocardiogram with color flow and Doppler was performed. The study quality was technically adequate. There is no prior echocardiogram noted for this patient. The patient was in normal sinus rhythm during the exam. Left Ventricle: The left ventricle is normal in size. The ejection fraction is estimated to be 55-60%. Regional wall motion abnormalities cannot be excluded due to limited visualization. Diastolic parameters suggest probable normal left ventricular diastolic function and normal filling pressures. Right Ventricle: The right ventricle is normal size. The right ventricular systolic function is normal. Atria: The left atrial size is normal. Right atrial size is normal. There is no Doppler evidence for an interatrial shunt. Mitral Valve: The mitral valve leaflets appear moderately thickened, but open well. There is no evidence of mitral valve prolapse. There is no mitral valve stenosis. There is no mitral regurgitation noted. Aortic Valve: The aortic valve is trileaflet. The aortic valve opens well. There is no aortic valve stenosis. There is trace aortic regurgitation. Tricuspid Valve: The tricuspid valve is normal. There is no tricuspid stenosis. There is trace tricuspid regurgitation. Pulmonary artery pressures cannot be estimated because of the lack of a measurable TR jet velocity but the IVC suggests a CVP of around 8 mmHg. Pulmonic Valve: The pulmonic valve leaflets are thin and pliable; valve motion is normal. There is no pulmonic valvular stenosis. There is no pulmonic valvular regurgitation. Great Vessels: The aortic root is normal size. The ascending aorta is normal in size. The pulmonary artery is normal size. The IVC is dilated (diameter is greater than 2.1 cm) yet it collapses greater than 50% with a sniff. This suggests a right atrial pressure of 8 mm Hg. Pericardium/ Pleura There is no pericardial effusion. There is no pleural effusion. MMode/2D Measurements & Calculations LVIDd: 4.1 cm LVOT diam: 1.9 cm LVIDs: 3.6 cm Ao root diam: 2.7 cm FS: 12.2 % asc Aorta Diam: 3.3 cm IVSd: 0.90 cm LVPWd: 1.2 cm LV khan. diameter/BSA (cm/m^2): 2.5 LV sys. diameter/BSA (cm/m^2): 2.2 LA A2 area: 14.0 cm2 RA long axis: 4.8 cm LA A4 area: 14.4 cm2 RA area: 13.7 cm2 LA length (vol): 4.9 cm RA vol: 32.9 ml LA vol: 34.8 ml RA : 20.2 ml/m2 LA vol index: 21.4 ml/m2 RVD1 (basal): 3.9 cm LVLs ap4: 5.3 cm LVLd ap2: 7.0 cm TAPSE_phl: 3.0 cm LVLs ap2: 6.1 cm Doppler Measurements & Calculations Ao V2 max: 175.0 cm/sec LVOT Max Antonio: 173.0 cm/sec Ao V2 mean: 119.0 cm/sec LV V1 max P.0 mmHg Ao max P.0 mmHg LV V1 VTI: 34.8 cm Ao mean P.0 mmHg JAIMIE(I,D): 2.7 cm2 Ao V2 VTI: 36.8 cm JAIMIE(V,D): 2.8 cm2 sev ratio: 0.95 JAIMIE indexed to BSA (cm^2/m^2): 1.6 MV E max antonio: 61.4 cm/sec TR max antonio: 227.0 cm/sec MV A max antonio: 83.3 cm/sec TR max P.6 mmHg MV E/A: 0.74 PA V2 max: 101.0 cm/sec Med Peak E' Antonio: 7.2 cm/sec PA V2 mean: 79.7 cm/sec E/E' med: 8.6 PA mean P.0 mmHg Lat Peak E' Antonio: 7.7 cm/sec PA pr(Accel): 4.3 mmHg E/E' lat: 7.9 E/e' average: 8.3 MV dec time: 0.23 sec SV(LVOT): 98.7 ml AV VR_phl: 0.99 JAIMIE(VTI)/BSA_phl: 1.6 MV P1/2t-pr_phl: 68.0 msec Reading Physician:PM
== END ==
PROVIDERS: PCP Family Medicine; Referring Provider Family Medicine; Visit Provider Family Medicine
DX: I34.1 Nonrheumatic mitral (valve) prolapse (principal); I47.1 Supraventricular tachycardia
CPT/HCPCS: 93242; 93306

== ENCOUNTER → 2023-03-21 14:34 | Outpatient (CLI) | payer MEDICARE, OTHER, SELFPAY | PROVIDERS: PCP Family Medicine; Referring Provider Family Medicine; Visit Provider Family Medicine | DX: I47.1 Supraventricular tachycardia (principal) | CPT/HCPCS: 93242 ==

== ENCOUNTER → 2023-04-10 08:21 | Outpatient (CLI) | payer MEDICARE, OTHER, SELFPAY ==
--- NOTE | 2023-04-10 | DI.NM.S_ITS ---
PROCEDURE: NM UPTAKE AND SCAN RADIOPHARMACEUTICAL: 410 ?Ci I-123 sodium iodide by mouth. INDICATIONS: Autoimmune thyroiditis TECHNIQUE: I-123 sodium iodide was administered orally. Anterior neck images were obtained, and iodine uptake by the thyroid gland calculated using rib bender's software. COMPARISON: None. FINDINGS: Morphology: The thyroid gland has normal morphology and uniform activity. No 'cold' or 'hot' thyroid nodules are identified. Uptake: The 6 hour thyroid uptake is 19.8% ; normal ranges are from 6-18%. The 24 hour thyroid uptake is 34.4% ; normal ranges are from 10-30%. IMPRESSION: 1. Mild diffusely increased thyroid uptake bilaterally. No discrete thyroid nodules. 2. Mildly elevated 6-hour and 24-hour radioactive iodine uptake. Dictated by: Valerio Davis M.D. on 04/11/2023 at 14:28 Approved by: Valerio Davis M.D. on 04/11/2023 at 14:33
== END ==
PROVIDERS: PCP Family Medicine; Referring Provider Family Medicine; Visit Provider Family Medicine
DX: E06.3 Autoimmune thyroiditis (principal)
CPT/HCPCS: 78014; A9516

== ENCOUNTER → 2023-06-25 16:37 | Outpatient (ROUT) | payer MEDICARE, OTHER, SELFPAY ==
[2023-06-25 17:02] LABS: COVID19 -Nasal RAPID Negative (Negative)
== END ==
PROVIDERS: PCP Family Medicine; Visit Provider Family Medicine
DX: R05.9 Cough, unspecified (principal)
CPT/HCPCS: 87635

== ENCOUNTER 2023-06-26 20:24 | Emergency (ER) | payer MEDICARE, OTHER, SELFPAY ==
[2023-06-26 20:29] VITALS: BP 150/70; PULSE 90; RESP 18; TEMP 36.6; O2SAT 100; BMI 22.6
[2023-06-26 21:11] LABS: Bacteria Urine Few (2-10); Culture Indicated Urine Specimen Cultured; RBC Urine 0-1/HPF (0-5/HPF); Squamous Epithelial Cell Urine None Seen (0-5/HPF); WBC Urine >100/HPF (0-5/HPF)
--- NOTE | 2023-06-26 21:12 | ED.FEMALEGU ---
HPI - Female Genitourinary General Chief complaint: Urogenital-Female Stated complaint: thinks UTI Time Seen by Provider: 06/26/23 20:34 Mode of arrival: Ambulatory History of Present Illness HPI Narrative: 72-year-old female nonsmoker without chronic medical history presents for evaluation of UTI symptoms over the course of the day. She states she is had previous UTIs and this feels similar. She complains of urinary frequency, dysuria, urgency, but denies hematuria. She has no systemic complaints such as dizziness, weakness or lightheadedness. She denies any fever or chills. She has no back pain or vomiting. She states that previously she has done well with Bactrim. She denies vaginal bleeding or discharge, she is otherwise well and free of complaint Related Data Home Medications Medication Instructions Recorded Confirmed cholecalciferol (vitamin D3) 100 4,000 unit PO DAILY 11/17/18 09/13/21 mcg (4,000 unit) capsule coenzyme Q10 75 mg capsule (Ultra 75 mg PO DAILY 11/17/18 09/13/21 CoQ10) lactobacillus combination no.8 See Rx Instructions .Route .COMPLEX 11/17/18 09/13/21 [Adult Probiotic] magnesium citrate 125 mg capsule 125 mg PO DAILY 11/17/18 09/13/21 levothyroxine 50 mcg tablet 50 mcg PO DAILY 05/09/21 09/13/21 liothyronine 5 mcg tablet 5 mcg PO DAILY 05/09/21 09/13/21 Previous Rx's Medication Instructions Recorded oxyquinoline 0.025 %-sodium lauryl 1 ea vaginal .COMPLEX #113.4 grams 09/13/21 sulfate 0.01 % vaginal gel phenazopyridine 100 mg tablet 100 mg PO TID PRN pain 6 doses #6 06/26/23 (Pyridium) tabs sulfamethoxazole 800 1 tab PO BID 10 days #20 tabs 06/26/23 mg-trimethoprim 160 mg tablet (Bactrim DS) Allergies Allergy/AdvReac Type Severity Reaction Status Date / Time ketorolac [KETOROLAC] Allergy Severe injection Verified 02/16/23 16:11 caused 7lb weight gain within minutes. Latex, Natural Rubber Allergy Severe Hives Verified 02/16/23 16:11 cephalexin [CEPHALEXIN] Allergy Unknown Verified 02/16/23 16:11 meperidine [MEPERIDINE] Allergy Unknown Verified 02/16/23 16:11 Penicillins [PENICILLINS] Allergy Unknown Verified 02/16/23 16:11 propoxyphene [PROPOXYPHENE] Allergy Unknown Verified 02/16/23 16:11 prochlorperazine AdvReac Unknown Verified 02/16/23 16:11 [PROCHLORPERAZINE] NSAIDS (Non-Steroidal AdvReac Verified 02/16/23 16:11 Anti-Inflamma Review of Systems Review of Systems Narrative: GENERAL: Denies chills, fatigue, malaise, fever, sweats. HEENT: Denies sinus pain, ear pain, sore throat, difficulty swallowing, dizziness. RESPIRATORY: Denies dyspnea, cough, wheezing, hemoptysis, sputum. CARDIOVASCULAR: Denies chest pain, palpitations, orthopnea, edema, GASTROINTESTINAL: Denies nausea, vomiting, abdominal pain, diarrhea, constipation, melena. : See HPI MUSCULOSKELETAL: denies weakness, joint pain, or bony pain SKIN: Denies rash, skin lesions, or other NEUROLOGIC: Denies weakness, headache, numbness, change in speech, confusion, seizures, incoordination. PSYCHIATRIC: No concerning psychosocial issues. 12 point review of systems is negative except for those stated above Patient History Medical History Acne Alopecia Ankle pain Cataracts, bilateral Chicken pox Foot pain Fractures Heavy menstrual period Hyperthyroidism Measles Mumps Myasthenia gravis Osteoarthritis Osteopenia Painful menstrual periods Plantar warts Surgical History Anesthesia History of breast surgery History of hernia repair History of knee replacement History of surgery History of tonsillectomy Family History Father Colon cancer Skin cancer Hyperlipidemia Hypertension Kidney disease Mother Hyperlipidemia Brother History of heart disease Hyperlipidemia History of heart attack Sister Hyperlipidemia alcohol intake frequency: 0-2 drinks per day Substance Use Type: does not use Exam Narrative Exam Narrative: GEN: AOx3 and in mild distress EYES: Pupils are equal, round, and reactive to light and accommodation. Extraoccular muscles are intact bilaterally. There is no subconjunctival hemorrhage or exudate. CHEST: Lungs are clear to auscultation bilaterally and free of wheezes, rales, or rhonchi. Heart rate is regular rhythm, there are no murmurs, clicks, rubs, or gallops. There is no chest wall tenderness. ABD: Abdomen is soft and nontender. There is no guarding or rebound. Bowel sounds are normal in all 4 quadrants. There is no mass or organomegaly. EXT: Full painless ROM of all extremities with no loss of sensation or strength. BACK: no CVA tenderness SKIN: Warm, pink, and dry. No erythema or rash Initial Vital Signs Initial Vital Signs: Vital Signs Temperature 98 F 06/26/23 20:29 Pulse Rate 90 06/26/23 20:29 Respiratory Rate 18 06/26/23 20:29 Blood Pressure 150/70 H 06/26/23 20:29 Pulse Oximetry 100 06/26/23 20:29 Oxygen Delivery Method Room Air 06/26/23 20:29 Course Orders Ordered: ED Orders 06/26/23 20:41 Urine Culture Stat Urine Microscopic Stat Discontinued Medications Phenazopyridine HCl (Phenazopyridine 100 Mg Tablet) 200 mg PO NOW ONE Stop: 06/26/23 21:18 Last Admin: 06/26/23 21:26 Dose: 200 mg Documented By: VENKATESH Trimethoprim/Sulfamethoxazole (Trimeth/Sulfa 160/800 (Ds) Tablet) 1 tab PO NOW ONE Stop: 06/26/23 21:18 Last Admin: 06/26/23 21:26 Dose: 1 tab Documented By: VENKATESH Vital Signs Vital signs: Vital Signs - 8 hr 06/26/23 20:29 Temperature 98 F Pulse Rate 90 Respiratory Rate 18 Blood Pressure 150/70 H Pulse Oximetry 100 Oxygen Delivery Method Room Air MDM - Female Genitourinary Lab Data Labs: Lab Results 06/26/23 Range/Units 20:41 Urine RBC 0-1/hpf (0-5/HPF) Urine WBC >100/hpf H (0-5/HPF) Ur Squamous Epith Cells None seen (0-5/HPF) Urine Bacteria Few (2-10) H (None) Ur Culture Indicated? Specimen cultured Urine Dip Bedside Urine Glucose Negative Bedside Urine Bilirubin - Negative Bedside Urine Ketone - Negative Urine Specific [place] 1.005 Bedside Urine Occult Blood +++ Bedside Urine pH 6.0 Bedside Urine Protein +/- 15 Bedside Urine Urobilinogen - Negative Bedside Urine Nitrite - Negative Bedside Urine Leukocytes ++ 125 Esterase MDM Narrative Medical decision making narrative: [72] year old patient presents with UTI symptoms Multiple etiologies for patient's symptoms considered including, but not limited to: [Cystitis versus pyelonephritis versus other] Prior Charts reviewed in our EMR Primary Historian: patient Labs reviewed and interpreted by myself: Urine consistent with UTI Patient's history and physical exam are reassuring, no signs of sepsis, no systemic complaints to suggest upper tract infection. Urine sent for culture, 1st dose of Bactrim tonight and remainder prescription sent to her pharmacy of choice Findings and discharge diagnosis discussed with patient/family followed by verbalization of understanding Return precautions discussed with patient/family whom verbalize understanding of diagnosis and plan Discharge Plan Departure Patient Disposition: Home Clinical Impression: Urinary tract infection Instructions: DI for Urinary Tract Infection (UTI) Activity Restrictions/Additional Instructions: *You have been diagnosed with [acute urinary tract infection] *What to do: *Please continue to take your regular medications as directed. [ x] New medication prescriptions sent to your pharmacy: [ [facility]] [ ] New medication written as a paper prescription [ ] No new medications given *Please follow up with your primary care provider in 2-3 days, call for an appointment. Let them know you were seen in the Emergency Department and that we ask that you be seen in follow up. We will electronically transmit a record of today's note if your PCP is in our system *If you do not have a primary care provider please contact the [facility] Resource line at [phone]. They will ask some questions about your medical history and help get you set up with a doctor in the community. *Return to Emergency Department if you should have any new, worsening or concerning symptoms, such as [fever greater than 101 F, shaking chills, worsening pain, persistent vomiting or other bothersome symptoms] Prescriptions: New sulfamethoxazole-trimethoprim [Bactrim DS] 800-160 mg tablet 1 tab PO BID 10 Days Qty: 20 0RF phenazopyridine [Pyridium] 100 mg tablet 100 mg PO TID PRN (Reason: pain) Qty: 6 0RF No Action oxyquinoline-sod.lauryl sulfat 0.025-0.01 % gel 1 ea VAG .COMPLEX Qty: 113.4 3RF Rx Instructions: To use daily with pessary changes cholecalciferol (vitamin D3) 4,000 unit capsule 4,000 unit PO DAILY magnesium citrate 125 mg capsule 125 mg PO DAILY Ultra CoQ10 75 mg capsule 75 mg PO DAILY lactobacillus combination no.8 See Rx Instructions .ROUTE .COMPLEX Rx Instructions: takes daily does not know dose liothyronine 5 mcg tablet 5 mcg PO DAILY Patient Comments: TAKE 1 TABLET ON EMPTY STOMACH IN THE MORNING FOR 2 WEEKS THEN 2 TABLETS IN THE MORNING ON EMPTY STOMACH levothyroxine 50 mcg tablet 50 mcg PO DAILY Patient Comments: Take 1 tablet by mouth daily in the morning on an empty stomach Referrals: Corby Sanchez MD [Primary Care Provider] - Stand Alone Forms: Patient Portal/API
[2023-06-26] MEDS: TRIMETH/SULFA 160/800 (DS) TABLET 1 TAB PO (21:26)
[2023-06-26] MEDS: PHENAZOPYRIDINE 100 MG TABLET 200 MG PO (21:26)
== END 2023-06-26 21:29 | disposition home or self-care (01) ==
PROVIDERS: Emergency Provider Emergency Medicine; PCP Family Medicine
DX: N39.0 Urinary tract infection, site not specified (principal)
CPT/HCPCS: 81003; 81015; 87077; 87086; 87186; 99283

== ENCOUNTER → 2024-01-27 15:58 | Outpatient (CLI) | payer MEDICARE, OTHER, SELFPAY ==
--- NOTE | 2024-01-27 16:00 | DI.MG.S_ITS ---
BILATERAL DIGITAL SCREENING MAMMOGRAM 3D/2D WITH CAD: 01/27/2024 CLINICAL: Routine screening. Family history of breast cancer. Comparison is made to exams dated: 01/25/2023 mammogram, 01/17/2022 mammogram, and 01/16/2021 mammogram - [facility]. There are scattered areas of fibroglandular density in both breasts (category b / 25%-50% glandular tissue). Current study was also evaluated with a Computer Aided Detection (CAD) system. There are benign vascular calcifications in both breasts. No significant masses, calcifications, or other findings are seen in either breast. There has been no significant interval change. IMPRESSION: BENIGN There is no mammographic evidence of malignancy. A 1 year screening mammogram is recommended. Based on the Tyrer Cuzick model (a risk assessment model) the patient's lifetime risk is 8.4% and her 10 year risk is 6.9%. According to the ACR, ACS, and NCCN guidelines, an annual breast MRI exam along with mammogram is recommended if the patient's lifetime risk is 20% or greater. This exam was interpreted at Station ID: Unknown. NOTE: For mammograms, a report in lay terms will be sent to the patient. Approximately 15% of breast malignancies will not be visualized mammographically. In the management of a palpable breast mass, a negative mammogram must not discourage biopsy of a clinically suspicious lesion. Electronically Signed By: Anastacio garcia/abhinav:01/28/2024 11:05:12 letter sent: Normal Exam ACR BI-RADS Category 2: Benign Finding(s) 3342F
== END ==
PROVIDERS: PCP Family Medicine; Referring Provider Family Medicine; Visit Provider Family Medicine
DX: Z12.31 Encounter for screening mammogram for malignant neoplasm of breast (principal); Z80.3 Family history of malignant neoplasm of breast; R92.323 Mammographic fibroglandular density, bilateral breasts
CPT/HCPCS: 77063; 77067

== ENCOUNTER → 2024-08-24 13:16 | Outpatient (CLI) | payer MEDICARE, OTHER, SELFPAY | LOC: RESP 13:17 | PROVIDERS: PCP Family Medicine; Referring Provider Internal Medicine Critical Care Medicine; Visit Provider Internal Medicine Critical Care Medicine | DX: R06.09 Other forms of dyspnea (principal); Z87.891 Personal history of nicotine dependence; R94.2 Abnormal results of pulmonary function studies | CPT/HCPCS: 94060; 94726; 94729 ==

== ENCOUNTER → 2024-09-29 13:48 | Outpatient (CLI) | payer MEDICARE, OTHER, SELFPAY ==
--- NOTE | 2024-09-29 13:50 | DI.ECHO.S_ITS ---
[place] [facility]---------+ [facility] : : [address] : : [place] : : [id number] : : Phone: [phone] Echocardiogram Report + + :Name: LIUDMILA SANCHEZ Study Date: 09/29/2024 Height: 64 in : [facility] ReadingLocation: Weight: 130 lb : : Gender: Female BSA: 1.6 m2 : :: 1950 Age: 73 yrs BP: 149/90 mmHg: :Reason For Study: NEWLY RECOGNIZED HEART MURMUR : :Ordering Physician: DARRELL : :CARA Performed By: Gama Pedro : :Referring: CARA RAMÍREZ : + + Interpretation Summary 1) Normal left ventricular thickness, size, wall motion, and systolic function (EF 60-65%). 2) Mildly enlarged right ventricle with normal function. 3) No significant valvular abnormalities. 4) Compared to the Echo done 03/21/2023, no significant change. Procedure: A two-dimensional transthoracic echocardiogram with color flow and Doppler was performed. The study quality was technically good. Comparison is made with the echocardiogram of 03/21/2023. The patient was in normal sinus rhythm during the exam. Left Ventricle: The left ventricle is normal in size. There is normal left ventricular wall thickness. There is no ventricular septal defect visualized. The ejection fraction is estimated to be 60-65%. Left ventricular systolic function appears normal without focal wall motion abnormalities. Diastolic parameters suggest a relaxation abnormality of the left ventricle, consistent with probable normal filling pressures. Right Ventricle: The right ventricle is mildly dilated. The right ventricular systolic function is normal. Atria: The left atrial size is normal. Right atrial size is normal. There is no Doppler evidence for an interatrial shunt. Mitral Valve: The mitral valve leaflets appear mildly thickened, but open well. The mitral valve leaflets are slightly calcified. There is no mitral regurgitation noted. Aortic Valve: The aortic valve is trileaflet. The aortic valve is slightly calcified. There is no aortic valve stenosis. There is trace aortic regurgitation. Tricuspid Valve: The tricuspid valve leaflets are thin and pliable. There is mild tricuspid regurgitation. The right ventricular systolic pressure is estimated to be at least 32 mmHg based on an estimated right atrial pressure of 3 mm Hg. Pulmonic Valve: The pulmonic valve leaflets are thin and pliable; valve motion is normal. There is no pulmonic valvular regurgitation. Great Vessels: The aortic root is normal size. The dimensions of the ascending aorta are normal. The pulmonary artery is normal size. The IVC is of normal diameter and collapses greater than 50% with a sniff. This suggests a low right atrial pressure of 3 mm Hg. Pericardium/ Pleura There is no pericardial effusion. There is no pleural effusion. MMode/2D Measurements & Calculations LVIDd: 3.9 cm LVOT diam: 1.9 cm LVIDs: 2.9 cm Ao root diam: 3.3 cm FS: 25.5 % asc Aorta Diam: 3.3 cm EPSS: 0.54 cm IVSd: 0.67 cm LVPWd: 0.94 cm LV khan. diameter/BSA (cm/m^2): 2.4 LV sys. diameter/BSA (cm/m^2): 1.8 LA A2 area: 20.6 cm2 RA long axis: 4.8 cm LA A4 area: 16.6 cm2 RA area: 16.8 cm2 LA length (vol): 5.5 cm RA vol: 50.2 ml LA vol: 52.9 ml RA : 30.8 ml/m2 LA vol index: 32.5 ml/m2 IVC diam: 1.7 cm RVD1 (basal): 3.8 cm RVD2 (mid): 3.0 cm TAPSE: 3.4 cm Doppler Measurements & Calculations Ao V2 max: 174.1 cm/sec LVOT Max Antonio: 166.3 cm/sec Ao V2 mean: 126.6 cm/sec LV V1 max P.1 mmHg Ao max P.1 mmHg LV V1 VTI: 38.7 cm Ao mean P.1 mmHg JAIMIE(I,D): 2.6 cm2 Ao V2 VTI: 41.9 cm JAIMIE(V,D): 2.7 cm2 sev ratio: 0.92 JAIMIE indexed to BSA (cm^2/m^2): 1.6 MV E max antonio: 63.8 cm/sec TR max antonio: 269.8 cm/sec MV A max antonio: 73.7 cm/sec TR max P.1 mmHg MV E/A: 0.87 PA V2 max: 88.7 cm/sec Med Peak E' Antonio: 7.4 cm/sec PA V2 mean: 67.2 cm/sec E/E' med: 8.6 PA mean P.0 mmHg Lat Peak E' Antonio: 8.4 cm/sec PA pr(Accel): 29.3 mmHg E/E' lat: 7.6 E/e' average: 8.1 MV dec time: 0.24 sec SV(LVOT): 110.2 ml Reading Physician:04:50 PM
== END ==
PROVIDERS: PCP Family Medicine; Referring Provider Family Medicine; Visit Provider Family Medicine
DX: I07.1 Rheumatic tricuspid insufficiency (principal); R01.1 Cardiac murmur, unspecified
CPT/HCPCS: 93306

== ENCOUNTER → 2025-01-19 12:39 | Outpatient (CLI) | payer MEDICARE, OTHER, SELFPAY ==
--- NOTE | 2025-01-19 13:05 | DI.MG.S_ITS ---
MM screening mammo BI: 01/19/2025. BI-RADS: 2 CLINICAL: 74-year old female for bilateral screening mammogram. Tyrer-Cuzick lifetime risk of 3.1%. Current reported family history of breast cancer: sister. PRIOR EXAMS 01/27/2024, 01/25/2023, 01/17/2022, 01/16/2021, 12/08/2019, 11/29/2018, 11/20/2017. MAMMOGRAPHY TECHNIQUE: 2D and 3D (tomosynthesis) digital mammographic views obtained, with additional images as needed for full coverage. Current study was also evaluated with a Computer Aided Detection (CAD) system. DENSITY A. The breasts are almost entirely fatty. MAMMOGRAPHY FINDINGS Bilateral: Typically-benign vascular calcifications noted. No significant change from comparison. IMPRESSION: * No evidence of malignancy with benign findings. RECOMMENDATIONS Bilateral * Annual screening mammography. OVERALL ASSESSMENT CATEGORY BI-RADS-2: Benign. The [employer] recommends annual screening mammography beginning at age 40 for women with average risk of breast cancer. ELECTRONICALLY SIGNED: Lexy Ochoa M.D. on 01/19/2025 at 05:33:39 PM PT Interpreting Station ID: [id number]
== END ==
PROVIDERS: PCP Family Medicine; Referring Provider Family Medicine; Visit Provider Family Medicine
DX: Z12.31 Encounter for screening mammogram for malignant neoplasm of breast (principal); Z80.3 Family history of malignant neoplasm of breast; R92.313 Mammographic fatty tissue density, bilateral breasts
CPT/HCPCS: 77063; 77067

== ENCOUNTER → 2025-04-03 08:22 | Outpatient (CLI) | payer MEDICARE, OTHER, SELFPAY ==
--- NOTE | 2025-04-03 | DI.RAD.S_ITS ---
PROCEDURE: XR THORACIC SPINE 3V INDICATIONS: Epigastric Pain TECHNIQUE: 3 views of the thoracic spine were acquired. COMPARISON: None. FINDINGS: Bones: No fractures or dislocations. No suspicious bony lesions. 12 pairs of ribs are noted, and appear intact where visualized. Levo scoliotic curvature of the thoracolumbar spine. Decreased osseous mineralization. Multilevel degenerative changes of the thoracic spine. Soft tissues: No paravertebral stripe thickening. IMPRESSION: Multilevel degenerative changes without definite acute osseous abnormality. Dictated by: Bertrand Harding M.D. on 04/03/2025 at 15:51 Approved by: Bertrand Harding M.D. on 04/03/2025 at 15:52
--- NOTE | 2025-04-03 | DI.RAD.S_ITS ---
PROCEDURE: XR LUMBAR SPINE MIN 4V INDICATIONS: Epigastric Pain TECHNIQUE: 5 views of the lumbar spine were acquired, including bilateral oblique views. COMPARISON: [facility], , L-SPINE 2-3 VIEWS, 05/03/2016, 10:55. FINDINGS: Bones: 5 nonrib-bearing vertebrae are present. Levo scoliotic curvature. Mild retrolisthesis of L2 on L3 and L3 on L4. Significantly decreased osseous mineralization. No vertebral body compression fractures. No suspicious bony lesions. There is multilevel facet arthropathy, worse at L4-5 and L5-S1. Multilevel disc height loss with degenerative endplate changes and spurring is present. Soft tissues: Overlying bowel gas pattern is normal. No suspicious soft tissue calcifications. Atherosclerotic vascular calcifications. Oblique images: No definite pars defects, however evaluation is limited by degenerative changes, scoliosis and decreased mineralization.. IMPRESSION: Multilevel degenerative changes of the lumbar spine with levo scoliotic curvature. Dictated by: Bertrand Harding M.D. on 04/03/2025 at 15:49 Approved by: Bertrand Harding M.D. on 04/03/2025 at 15:51
--- NOTE | 2025-04-03 08:28 | DI.CT.S_ITS ---
PROCEDURE: CT ABDOMEN PELVIS W CON INDICATIONS: Epigastric Pain TECHNIQUE: After the administration of intravenous contrast, axial sections acquired from the lung bases to the pubic symphysis. Coronal and sagittal reformats were performed. For radiation dose reduction, the following was used: automated exposure control, adjustment of mA and/or kV according to patient size. COMPARISON: [facility], CT, ABDOMEN/PELVIS WITH CONTRAST, 04/11/2017, 8:56. FINDINGS: Image quality: Diagnostic. Lower Chest: No significant findings. ABDOMEN: Liver: No solid mass. Gallbladder: No radiopaque gallstones or wall thickening. Biliary ducts: No biliary dilation. Pancreas: No ductal dilation. Spleen: Size is within normal limits. Adrenal Glands: No adrenal nodules. Kidneys and Ureters: No hydronephrosis. No solid mass. No complex renal cystic lesion which requires follow up. Stomach and Bowel: Small duodenal diverticulum is noted. Normal colonic caliber, without significant wall thickening. Small right perineal hernia containing a loop of small bowel that obstruction (2/126). Diverticulosis without evidence of acute diverticulitis. Peritoneum: No abnormal intraperitoneal fluid. No free air. Ventral Wall: No significant ventral hernia. Abdominal Nodes: No retroperitoneal or mesenteric adenopathy by size criteria. Vessels: Aorta and inferior vena cava are normal in size. Atherosclerotic vascular calcifications. PELVIS: Pelvic Organs: Pessary in place. Bladder: No bladder wall thickening, accounting for underdistention. Pelvic Nodes: No enlarged lymph nodes. Miscellaneous: No inguinal hernias are seen. Bones: No aggressive osseous abnormality. Degenerative changes of the spine with levo scoliotic curvature. IMPRESSION: 1. No acute findings within the abdomen or pelvis to explain patient's symptoms. 2. Small right perineal hernia containing a loop of small bowel without evidence of obstruction. 3. Please see above for additional incidental findings. Dictated by: Bertrand Harding M.D. on 04/04/2025 at 14:31 Approved by: Bertrand Harding M.D. on 04/04/2025 at 14:40
== END ==
LOC: CT 08:27
PROVIDERS: PCP Family Medicine; Referring Provider Family Medicine; Visit Provider Family Medicine
DX: K45.8 Other specified abdominal hernia without obstruction or gangrene (principal); K57.10 Diverticulosis of small intestine without perforation or abscess without bleeding; K57.90 Diverticulosis of intestine, part unspecified, without perforation or abscess without bleeding; R10.13 Epigastric pain; M47.816 Spondylosis without myelopathy or radiculopathy, lumbar region; M47.817 Spondylosis without myelopathy or radiculopathy, lumbosacral region; M47.814 Spondylosis without myelopathy or radiculopathy, thoracic region; M41.9 Scoliosis, unspecified
CPT/HCPCS: 72072; 72110; 74177; Q9967

== ENCOUNTER 2025-05-07 15:32 | Emergency (ER) | payer MEDICARE, OTHER, SELFPAY ==
[2025-05-07 17:01] VITALS: BP 174/84; PULSE 74; RESP 18; TEMP 36.2; O2SAT 99; BMI 23.0
--- NOTE | 2025-05-07 17:08 | DI.RAD.S_ITS ---
PROCEDURE: XR WRIST LT MIN 3V INDICATIONS: fall/pain/swelling TECHNIQUE: 4 views of the wrist were acquired. COMPARISON: [facility], CR, XR WRIST LT MIN 3V, 02/15/2019, 14:08. FINDINGS AND IMPRESSION: Age-indeterminate deformity at the ulnar styloid, correlate with location of injury. No acute displaced fracture otherwise or dislocation. Moderate arthrosis at the STT and 1st CMC joints. Subchondral lucencies likely degenerative geodes also present at the lunate. If there is high concern for occult injury, consider repeat radiography in about 7 days or cross-sectional imaging. Dictated by: Bob Moreno M.D. on 05/07/2025 at 17:45 Approved by: Bob Moreno M.D. on 05/07/2025 at 17:47
== END 2025-05-07 21:52 | disposition left against medical advice (07) ==
PROVIDERS: Emergency Provider Emergency Medicine; PCP Family Medicine
DX: S69.92XA Unspecified injury of left wrist, hand and finger(s), initial encounter (principal); W01.0XXA Fall on same level from slipping, tripping and stumbling without subsequent striking against object, initial encounter
CPT/HCPCS: 73110; 99281

== ENCOUNTER → 2025-05-11 11:06 | Outpatient (CLI) | payer MEDICARE, OTHER, SELFPAY ==
--- NOTE | 2025-05-11 11:09 | DI.RAD.S_ITS ---
PROCEDURE: XR WRIST LT MIN 3V INDICATIONS: WRIST PAIN TECHNIQUE: 4 views of the wrist were acquired. COMPARISON: [facility], CR, XR WRIST LT MIN 3V, 05/07/2025, 17:15. [facility], CR, XR WRIST LT MIN 3V, 02/15/2019, 14:08. FINDINGS: Bones: No fracture or dislocation. Sclerosis and subcortical cystic change in the ulnar aspect of the lunate with positive ulnar variance. Moderate degenerative arthrosis of the thumb carpometacarpal joint Soft tissues: No suspicious soft tissue calcifications. 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 No acute osseous abnormality. Dictated by: Umang Bocanegra M.D. on 05/11/2025 at 16:10 Approved by: Umang Bocanegra M.D. on 05/11/2025 at 16:11
== END ==
PROVIDERS: PCP Family Medicine; Referring Provider Family Medicine; Visit Provider Family Medicine
DX: M18.12 Unilateral primary osteoarthritis of first carpometacarpal joint, left hand (principal); M25.832 Other specified joint disorders, left wrist; M25.532 Pain in left wrist
CPT/HCPCS: 73110

== ENCOUNTER → 2025-09-17 11:41 | Outpatient (CLI) | payer MEDICARE, OTHER, SELFPAY ==
--- NOTE | 2025-09-17 11:43 | DI.RAD.S_ITS ---
1 PROCEDURE: XR DEXA AXIAL SKELETON INDICATIONS: routine COMPARISON: [facility], CR, XR DEXA AXIAL SKELETON, 05/12/2019, 13:57. FINDINGS: Lumbar Spine: Bone mineral density 0.82 g/cm2, T score -1.8, previously -1.4 Left Femoral Neck: Bone mineral density 0.60 g/cm2, T score -2.3, previously -1.9. Left Hip: Bone mineral density 0.71 g/cm2, T score -1.9, previously -1.6. Fracture Risk Calculation (when applicable): 10-year fracture risk of a major osteoporotic fracture 14 percent and of a hip fracture 4 percent. (T score greater or equal to -1.0 to: NORMAL) (T score from -1.1 to -2.4: OSTEOPENIA) (T score less than or equal to -2.5: OSTEOPOROSIS) IMPRESSION: Osteopenia, with elevated fracture risk calculated above. T-scores have slightly declined. Follow-up guidelines as follows: Osteoporosis: Consider a repeat DEXA and Vertebral Fracture Assessment (VFA) exam in 2 years or sooner if medically necessary, to reassess this patient's status. Osteopenia: Consider a repeat DEXA in 2-3 years to reassess this patient's status, or if there is a new clinical indication. Normal: Consider a repeat DEXA in 5 years or sooner, or if there is a new clinical indication. All treatment decisions require clinical judgment and consideration of individual patient factors, including patient preferences, comorbidities, previous drug use, risk factors not captured in the FRAX model (e.g., frailty, falls, vitamin D deficiency, increased bone turnover, interval significant decline in bone density ) and possible under- or over-estimation of fracture risk by FRAX. In addition, the NOF Guide recommends that FDA-approved medical therapies be considered in postmenopausal women and men age >= 50 years with a: * Hip or vertebral (clinical or morphometric) fracture * T-score of <=-2.5 at the spine or hip * Ten-year fracture probability by FRAX of >= 3% for hip fracture or >=20% for major osteoporotic fracture. Dictated by: Bob Moreno M.D. on 09/19/2025 at 21:49 Approved by: Bob Moreno M.D. on 09/19/2025 at 21:51
== END ==
LOC: RAD 11:41
PROVIDERS: PCP Family Medicine; Referring Provider Family Medicine; Visit Provider Family Medicine
DX: M85.89 Other specified disorders of bone density and structure, multiple sites (principal); Z78.0 Asymptomatic menopausal state
CPT/HCPCS: 77080